=== PATIENT | female | born 1995 | race Caucasian/White ===

== ENCOUNTER 2018-11-09 15:42 | Emergency (ER) | payer MEDICAID ==
[~2018-11-09] VITALS: Ht 154.9 cm; Wt 83.1 kg
[2018-11-09] MEDS ORDERED: LORazepam 1 MG tablet PO ONE (18:45)
--- NOTE | 2018-11-09 19:00 | NUR ---
Pt arrived, boyfriend at bedside.
--- NOTE | 2018-11-09 20:00 | NUR ---
Dr. Suh at bedside.
--- NOTE | 2018-11-09 21:05 | NUR ---
Pt resting quietly, respirations normal, no s/s of distress.
[2018-11-09 21:07] LABS: URINE HCG NEGATIVE (NEG)
[2018-11-09 21:15] LABS: URINE AMPHETAMINE SCREEN NEGATIVE (Neg); URINE BARBITUATE SCREEN NEGATIVE (Neg); URINE BENZODIAZEPINES SCREEN NEGATIVE (Neg); URINE CANNABINOID SCREEN NEGATIVE (Neg); URINE COCAINE SCREEN NEGATIVE (Neg); URINE METHADONE SCREEN NEGATIVE (Neg); URINE OPIATE SCREEN NEGATIVE (Neg); URINE PHENCYCLIDINE SCREEN NEGATIVE (Neg)
[2018-11-09 21:29] LABS: BASOPHILS # (AUTO) 0.1 X10'3 (0-0.2); BASOPHILS % (AUTO) 0.8 % (0-1); EOSINOPHILS # (AUTO) 0.2 X10'3 (0-0.9); EOSINOPHILS % (AUTO) 1.2 % (0-6); HEMATOCRIT 40.4 % (35.0-45.0); HEMOGLOBIN 13.6 g/dl (12.0-16.0); LYMPHOCYTES % (AUTO) 30.3 % (21-51); MEAN CORPUSCULAR HEMOGLOBIN 31.7 PG (27.0-31.0); MEAN CORPUSCULAR HGB CONC 33.8 g/dL (33.0-36.5); MEAN CORPUSCULAR VOLUME 93.7 FL (78-98); MEAN PLATELET VOLUME 7.9 FL (7.4-10.4); MONOCYTES # (AUTO) 0.6 X10'3 (0-0.9); MONOCYTES % (AUTO) 4.7 % (2-12); NEUTROPHILS # (AUTO) 8.2 X10'3 (1.8-7.7); PLATELET COUNT 291 X10'3 (140-440); WHITE BLOOD COUNT 13.1 X10'3 (4.5-11.0)
[2018-11-09 21:38] LABS: ALANINE AMINOTRANSFERASE 67 U/L (12-78); ALBUMIN 3.6 G/DL (3.4-5.0); ALKALINE PHOSPHATASE 70 IU/L (46-116); ANION GAP 9 (8-16); ASPARTATE AMINO TRANSFERASE 27 U/L (10-37); BILIRUBIN,TOTAL 0.1 MG/DL (0.1-1.0); BLOOD UREA NITROGEN 16 MG/DL (7-18); BUN/CREATININE RATIO 19.3 (6.6-38.0); CALCIUM 8.9 MG/DL (8.5-10.1); CHLORIDE 104 MMOL/L (99-107); CREATININE 0.83 MG/DL (0.40-0.90); ETHANOL < 0.010 GM/DL (0.0-0.010); GLUCOSE 97 MG/DL (70-104); POTASSIUM 3.7 MMOL/L (3.5-5.1); SODIUM 140 MMOL/L (135-145); TOTAL CARBON DIOXIDE 27.1 MMOL/L (24-32); TOTAL PROTEIN 7.2 G/DL (6.4-8.2); eGFR 84 ML/MIN
--- NOTE | 2018-11-09 22:00 | NUR ---
Pt resting quietly, respirations normal, no s/s of distress.
[2018-11-09] MEDS: lamoTRIgine 25mg tablet PO SCH (23:04)
--- NOTE | 2018-11-09 23:10 | NUR ---
Packet sent to [facility]. Confirmed receipt of packet with Kasey Lo [place] office.
--- NOTE | 2018-11-09 23:20 | NUR ---
Pt resting quietly, respirations normal, no s/s of distress.
--- NOTE | 2018-11-10 00:15 | NUR ---
Pt resting quietly, respirations normal, no s/s of distress.
--- NOTE | 2018-11-10 02:00 | NUR ---
Pt resting quietly, respirations normal, no s/s of distress.
--- NOTE | 2018-11-10 03:00 | NUR ---
Pt resting quietly, respirations normal, no s/s of distress.
--- NOTE | 2018-11-10 03:46 | NUR ---
Pt resting quietly, respirations normal, no s/s of distress.
--- NOTE | 2018-11-10 04:46 | NUR ---
Pt resting quietly, respirations normal, no s/s of distress.
[2018-11-10] MEDS: lamoTRIgine 25mg tablet PO SCH (08:00)
--- NOTE | 2018-11-10 11:12 | NUR ---
PT SITTING ON SIDE OF BED, IN NO ACUTE DISTRESS AT THIS TIME.
[2018-11-10] MEDS ORDERED: TRAZ-251 PO (12:55)
[2018-11-10] MEDS ORDERED: ARIP5TAB4 PO (12:55)
[2018-11-10] MEDS ORDERED: LAMO25TA5 PO (12:55)
[2018-11-10 13:06] VITALS: BP 132/93
== END 2018-11-10 13:25 | disposition home or self-care (01) ==
LOC: ER 15:42
DX: F31.9 Bipolar disorder, unspecified (principal); F41.9 Anxiety disorder, unspecified; Z88.1 Allergy status to other antibiotic agents; Z88.5 Allergy status to narcotic agent; Z79.899 Other long term (current) drug therapy
CPT/HCPCS: 36415; 80053; 80305; 80320; 81025; 85025; 99284